=== PATIENT | female | born 1970 | race Caucasian/White ===

== ENCOUNTER 2017-06-09 12:39 | Inpatient (IN) | payer BC ==
[~2017-06-09] VITALS: Ht 172.7 cm; Wt 99.8 kg
[2017-06-09 12:44] VITALS: BP_SYST 164
[2017-06-09 13:10] LABS: BILIRUBIN,URINE NEGATIVE (NEGATIVE); CLARITY/URINE CLEAR (CLEAR); COLOR,URINE YELLOW (YELLOW); GLUCOSE,URINE NEGATIVE (NEGATIVE); KETONES,URINE NEGATIVE (NEGATIVE); LEUKOCYTE ESTERASE ,URINE NEGATIVE (NEGATIVE); NITRITE, URINE NEGATIVE (NEGATIVE); PROTEIN URINE NEGATIVE (NEGATIVE); UROBILINOGEN,URINE 0.2 (0.2-1.0)
[2017-06-09] MEDS ORDERED: NACL 0.9% 1,000 ML IV ONE ×2 (13:15→14:45)
[2017-06-09] MEDS ORDERED: MORPHINE 4 MG/ML INJ. SYRINGE IVP ONE (13:15)
[2017-06-09] MEDS ORDERED: ONDANSETRON HCL 4 MG/2 ML VIAL IVP ONE (13:15)
[2017-06-09 13:33] LABS: BLOOD, URINE TRACE (NEGATIVE)
[2017-06-09 13:48] LABS: BACTERIA,URINE FEW /HPF (None Seen); MUCUS,URINE 1+ /LPF (None Seen); RBC,URINE 0-3 /HPF (0-3); WBC,URINE 0-3 /HPF (0-3)
[2017-06-09 13:56] LABS: BASOPHILS # (AUTO) 0.1 K/uL (0.0-0.2); BASOPHILS % (AUTO) 0.4 % (0.0-2.0); EOSINOPHILS % (AUTO) 0.2 % (0.0-4.0); HEMATOCRIT 42.3 % (36-48); HEMOGLOBIN 14.1 g/dL (12.0-16.0); LYMPHOCYTES % (AUTO) 12.5 % (20.5-51.5); MEAN CORPUSCULAR HEMOGLOBIN 31 pg (27-31); MEAN CORPUSCULAR HGB CONC 33 % (32-36); MEAN CORPUSCULAR VOLUME 94 fL (79.0-98.0); MONOCYTES # (AUTO) 0.7 K/uL (0.0-1.0); MONOCYTES % (AUTO) 4.2 % (1.7-9.3); NEUTROPHILS # (AUTO) 13.3 K/uL (1.8-7.7); NEUTROPHILS % (AUTO) 82.7 % (40.0-70.0); PLATELET COUNT (AUTO) 361 K/uL (130-430); RED CELL DISTRIBUTION WIDTH 11.9 % (9.0-15.0); WHITE BLOOD COUNT (AUTO) 16.1 K/uL (4.8-10.8)
[2017-06-09 14:26] LABS: ALANINE AMINOTRANSFERASE 88 U/L (12-78); ALBUMIN 3.7 g/dL (3.4-4.8); AMYLASE 132 U/L (0-100); ANION GAP 11 (5-15); ASPARTATE AMINOTRANSFERASE 49 U/L (10-37); CALCIUM 8.9 mg/dL (8.4-11.0); CHLORIDE 100 mmol/L (98-107); CREATININE 0.74 mg/dL (0.55-1.30); GLUCOSE 128 mg/dL (70-99); LIPASE 1127 U/L (73-393); POTASSIUM 3.6 mmol/L (3.5-5.1); SODIUM SERUM 133 mmol/L (136-145); TOTAL BILIRUBIN 0.6 mg/dL (0.0-1.0)
[2017-06-09 14:28] LABS: GFR AFRICAN AMERICAN 109 mL/min (>90)
[2017-06-09 14:37] LABS: UREA NITROGEN, BLOOD 5 mg/dL (8-21)
[2017-06-09 16:00] VITALS: BP_SYST 136
[2017-06-09] MEDS ORDERED: THIAMINE HCL 100 MG in NS 50 ML IV ONE (16:15)
[2017-06-09 16:32] VITALS: BP_SYST 136
[2017-06-09] MEDS ORDERED: ONDANSETRON HCL 4 MG/2 ML VIAL IVP PRN (16:45)
[2017-06-09] MEDS ORDERED: MORPHINE 4 MG/ML INJ. SYRINGE IVP PRN (16:45)
[2017-06-09] MEDS ORDERED: FLU VACC QS 2017-18(36MOS+)/PF 0.5 ML/SYR SYRINGE I.M. PRN (17:00)
[2017-06-09] MEDS ORDERED: LORazepam 2 MG/ML VIAL IVP PRN (17:15)
[2017-06-09] MEDS: MORPHINE 2 MG/ML INJ. SYRINGE IVP PRN ×2 (17:18→20:49)
[2017-06-09] MEDS: NACL 0.9% 1,000 ML IV SCH (17:20)
[2017-06-09] MEDS ORDERED: PIPERACILLIN/TAZOBACTAM 3.375 GM/VIAL (ZOSYN) IV ONE (18:18)
[2017-06-09 19:05] VITALS: BP_SYST 157
[2017-06-09] MEDS: PIPERACILLIN/TAZO 3.375/DEX-IS 50 ML IV SCH (20:08)
[2017-06-09] MEDS: TEMAZEPAM 15 MG CAPSULE PO PRN (21:36)
[2017-06-10] VITALS (7 sets, daily range): BP systolic 120–132
[2017-06-10] MEDS: PIPERACILLIN/TAZO 3.375/DEX-IS 50 ML IV SCH ×4 (00:22→17:24)
[2017-06-10] MEDS: MORPHINE 2 MG/ML INJ. SYRINGE IVP PRN ×4 (05:31→20:43)
[2017-06-10 07:35] LABS: BASOPHILS % (AUTO) 0.1 % (0.0-2.0); EOSINOPHILS # (AUTO) 0.1 K/uL (0.0-0.4); EOSINOPHILS % (AUTO) 0.5 % (0.0-4.0); HEMATOCRIT 40.1 % (36-48); HEMOGLOBIN 13.6 g/dL (12.0-16.0); LYMPHOCYTES % (AUTO) 15.5 % (20.5-51.5); MEAN CORPUSCULAR HEMOGLOBIN 32 pg (27-31); MEAN CORPUSCULAR HGB CONC 34 % (32-36); MEAN CORPUSCULAR VOLUME 94 fL (79.0-98.0); MONOCYTES # (AUTO) 1.1 K/uL (0.0-1.0); NEUTROPHILS # (AUTO) 9.5 K/uL (1.8-7.7); NEUTROPHILS % (AUTO) 74.9 % (40.0-70.0); PLATELET COUNT (AUTO) 319 K/uL (130-430); RED BLOOD CELL COUNT(AUTO) 4.29 MIL/uL (4.2-6.2); RED CELL DISTRIBUTION WIDTH 12.4 % (9.0-15.0); WHITE BLOOD COUNT (AUTO) 12.7 K/uL (4.8-10.8)
[2017-06-10 07:54] LABS: ALBUMIN 3.2 g/dL (3.4-4.8); CREATININE 0.62 mg/dL (0.55-1.30); POTASSIUM 3.4 mmol/L (3.5-5.1); TOTAL BILIRUBIN 1.3 mg/dL (0.0-1.0)
[2017-06-10] MEDS: THIAMINE HCL 100 MG TABLET PO SCH (08:23)
[2017-06-10] MEDS: FOLIC ACID 1 MG TABLET PO SCH (08:23)
[2017-06-10] MEDS: NACL 0.9% 1,000 ML IV SCH ×3 (10:13→20:44)
[2017-06-10] MEDS ORDERED: POTASSIUM CHLORIDE 20 MEQ TAB.PRT.SR PO ONE (11:30)
[2017-06-11] VITALS: BP_SYST 127
[2017-06-11] MEDS: PIPERACILLIN/TAZO 3.375/DEX-IS 50 ML IV SCH ×5 (00:38→23:01)
[2017-06-11] MEDS: NACL 0.9% 1,000 ML IV SCH ×2 (00:40→09:13)
[2017-06-11 04:00] VITALS: BP_SYST 127
[2017-06-11 07:57] LABS: BASOPHILS % (AUTO) 0.2 % (0.0-2.0); EOSINOPHILS # (AUTO) 0.2 K/uL (0.0-0.4); EOSINOPHILS % (AUTO) 1.7 % (0.0-4.0); HEMATOCRIT 36.8 % (36-48); HEMOGLOBIN 12.8 g/dL (12.0-16.0); LYMPHOCYTES # (AUTO) 2.6 K/uL (1.0-5.5); LYMPHOCYTES % (AUTO) 24.8 % (20.5-51.5); MEAN CORPUSCULAR HEMOGLOBIN 33 pg (27-31); MEAN CORPUSCULAR HGB CONC 35 % (32-36); MEAN CORPUSCULAR VOLUME 95 fL (79.0-98.0); MONOCYTES # (AUTO) 0.8 K/uL (0.0-1.0); MONOCYTES % (AUTO) 7.9 % (1.7-9.3); NEUTROPHILS # (AUTO) 6.8 K/uL (1.8-7.7); NEUTROPHILS % (AUTO) 65.4 % (40.0-70.0); PLATELET COUNT (AUTO) 288 K/uL (130-430); RED CELL DISTRIBUTION WIDTH 12.1 % (9.0-15.0); WHITE BLOOD COUNT (AUTO) 10.4 K/uL (4.8-10.8)
[2017-06-11 08:00] VITALS: BP_SYST 123
[2017-06-11 08:00] LABS: CREATININE 0.5 mg/dL (0.55-1.30); POTASSIUM 3.4 mmol/L (3.5-5.1); TOTAL BILIRUBIN 1.1 mg/dL (0.0-1.0)
[2017-06-11] MEDS: FOLIC ACID 1 MG TABLET PO SCH (09:13)
[2017-06-11] MEDS: THIAMINE HCL 100 MG TABLET PO SCH (09:13)
[2017-06-11 12:37] VITALS: BP_SYST 103
[2017-06-11 16:00] VITALS: BP_SYST 143
[2017-06-11] MEDS ORDERED: POTASSIUM CHLORIDE 20 MEQ TAB.PRT.SR PO ONE (17:00)
[2017-06-11 20:00] VITALS: BP_SYST 109
[2017-06-11] MEDS: TEMAZEPAM 15 MG CAPSULE PO PRN (22:59)
[2017-06-12 00:10] VITALS: BP_SYST 101
[2017-06-12 05:37] VITALS: BP_SYST 114
[2017-06-12] MEDS: PIPERACILLIN/TAZO 3.375/DEX-IS 50 ML IV SCH ×2 (05:37→12:16)
[2017-06-12 07:35] LABS: CALCIUM 8.4 mg/dL (8.4-11.0); CREATININE 0.56 mg/dL (0.55-1.30); POTASSIUM 3.3 mmol/L (3.5-5.1)
[2017-06-12 07:56] VITALS: BP_SYST 100
[2017-06-12 08:15] VITALS: BP_SYST 100
[2017-06-12] MEDS: THIAMINE HCL 100 MG TABLET PO SCH (08:51)
[2017-06-12] MEDS: FOLIC ACID 1 MG TABLET PO SCH (08:51)
[2017-06-12] MEDS ORDERED: POTASSIUM CHLORIDE 20 MEQ TAB.PRT.SR PO ONE (10:45)
[2017-06-12 10:53] VITALS: BP_SYST 118
[2017-06-12] MEDS ORDERED: POTA-88 PO (12:37)
[2017-06-12] MEDS ORDERED: FAMO10TA41 PO (12:38)
[2017-06-12 12:41] VITALS: BP_SYST 118
[2017-06-12 17:07] LABS: ANTI NUCLEAR AB WITH REFLEX Negative (Negative)
== END 2017-06-12 13:24 | disposition home or self-care (01) | DRG 439 ==
LOC: SED 12:39 → STU 15:35 → SMU 06-10 11:38
PROVIDERS: ADMIT Internal Medicine; ATTEND Internal Medicine
DX: K85.20 Alcohol induced acute pancreatitis without necrosis or infection (principal); R65.10 Systemic inflammatory response syndrome (SIRS) of non-infectious origin without acute organ dysfunction; E66.9 Obesity, unspecified; E87.6 Hypokalemia; Z87.891 Personal history of nicotine dependence; M06.9 Rheumatoid arthritis, unspecified; I10 Essential (primary) hypertension; F41.9 Anxiety disorder, unspecified; M21.619 Bunion of unspecified foot; Z90.710 Acquired absence of both cervix and uterus; Z68.33 Body mass index [BMI] 33.0-33.9, adult
CPT/HCPCS: 36415; 76700-TC; 80048; 80053; 80061; 81000-TC; 82150-TC; 82787; 83605; 83690-TC; 83735-TC; 84484; 85025; 86038; 87040-TC; 93005; 96361; 96374; 96375; 99285; J2270; J2405; J2543; J3411; J7030

== ENCOUNTER 2019-09-10 10:14 | Emergency (ER) | payer BC ==
[~2019-09-10] VITALS: Ht 172.7 cm; Wt 108.9 kg
[~2019-09-10 10:14] MED LIST: FAMO10TA41 PO; POTA-88 PO
[2019-09-10 10:15] VITALS: BP_SYST 152
--- NOTE | 2019-09-10 10:15 | NUR ---
BROUGHT BACK TO BED #7 AND TRIAGED. REPORT GIVEN TO KUSH
[2019-09-10] MEDS ORDERED: ESCI20TA PO (10:38)
[2019-09-10] MEDS ORDERED: ATEN50TA PO (10:38)
--- NOTE | 2019-09-10 10:41 | NUR ---
PATIENT PRESENTS TO THE ER WITH ONE WEEK HX OF LOWER BACK PAIN WITH LEFT LOWER QUADRANT PAIN AND NAUSEA; NO TRAUMA, NO OTHER REMARKABLE S/S; PATIENT TO ER #7 AT 1027
--- NOTE | 2019-09-10 11:15 | NUR ---
REASSESSMENT; PATIENT STATES MARGINAL IMPROVEMENT; ERMD EVALUATION AT 1100; ORDERS EXECUTED
[2019-09-10 11:49] LABS: BASOPHILS # (AUTO) 0.1 K/uL (0.0-0.2); BASOPHILS % (AUTO) 0.6 % (0.0-2.0); EOSINOPHILS # (AUTO) 0.2 K/uL (0.0-0.4); EOSINOPHILS % (AUTO) 1.9 % (0.0-4.0); HEMATOCRIT 40.3 % (36-48); HEMOGLOBIN 13.4 g/dL (12.0-16.0); LYMPHOCYTES # (AUTO) 3.5 K/uL (1.0-5.5); MEAN CORPUSCULAR HEMOGLOBIN 30 pg (27-31); MEAN CORPUSCULAR HGB CONC 33 % (32-36); MEAN CORPUSCULAR VOLUME 91 fL (79.0-98.0); MONOCYTES # (AUTO) 0.7 K/uL (0.0-1.0); MONOCYTES % (AUTO) 7.5 % (1.7-9.3); NEUTROPHILS # (AUTO) 5.2 K/uL (1.8-7.7); PLATELET COUNT (AUTO) 394 K/uL (130-430); RED BLOOD CELL COUNT(AUTO) 4.41 MIL/uL (4.2-6.2); WHITE BLOOD COUNT (AUTO) 9.6 K/uL (4.8-10.8)
[2019-09-10 11:53] LABS: CALCIUM 9.1 mg/dL (8.4-11.0); CREATININE 0.68 mg/dL (0.55-1.30)
[2019-09-10 11:58] LABS: ALBUMIN 4.1 g/dL (3.4-4.8); TOTAL BILIRUBIN 0.4 mg/dL (0.0-1.0)
--- NOTE | 2019-09-10 13:00 | NUR ---
REASSESSMENT; PATIENT STATES HER PAIN HAS RESOLVED; DISPOSITION PENDING
[2019-09-10 13:28] VITALS: BP_SYST 118
--- NOTE | 2019-09-10 13:30 | NUR ---
Patient given written and verbal discharge instructions and verbalizes understanding. ER MD discussed with patient the results and treatment provided. Patient in stable condition. ID arm band removed. Rx of Tramadol given. Patient educated on pain management and to follow up with PMD. Pain Scale 2/10 tolerable for patient. Opportunity for questions provided and answered. Medication side effect fact sheet provided.
== END 2019-09-10 13:28 | disposition home or self-care (01) ==
LOC: SED 10:14
DX: I88.0 Nonspecific mesenteric lymphadenitis (principal); Z88.1 Allergy status to other antibiotic agents
CPT/HCPCS: 36415; 80053; 81002; 83690-TC; 85025; 99284

== ENCOUNTER 2022-06-10 19:06 | Emergency (ER) | payer BC ==
[~2022-06-10] VITALS: Ht 172.7 cm; Wt 96.6 kg
[~2022-06-10 19:06] MED LIST changes: +ATEN50TA PO; +ESCI20TA PO; -FAMO10TA41 PO; -POTA-88 PO
--- NOTE | 2022-06-10 19:14 | NUR ---
ER in triage examining patient.
[2022-06-10 19:20] VITALS: BP_SYST 154
--- NOTE | 2022-06-10 19:20 | NUR ---
Patient came in to ER with complains of cough and congestion since . States that she tested positive for COVID earlier today. She denies any phlegm production, difficulty breathing. Patient with no history of asthma. Patient with history of rheumatoid arthritis taking her steroids.
--- NOTE | 2022-06-10 19:30 | NUR ---
CC COVID LIKE SYMPTOMS, SORE THROAT, COUGH, SOB, CHEST CONGESTION.
[2022-06-10] MEDS ORDERED: ALBMDI INH (19:56)
[2022-06-10] MEDS ORDERED: NIRM1TAB5 PO (19:56)
--- NOTE | 2022-06-10 20:12 | NUR ---
DPatient given written and verbal discharge instructions and verbalizes understanding. ER MD discussed with patient the results and treatment provided. Patient in stable condition. ID arm band removed. Rx of PAXLOVID AND ALBUTEROL given. Patient educated on pain management and to follow up with PMD. Opportunity for questions provided and answered. Medication side effect fact sheet provided.
== END 2022-06-10 20:14 | disposition home or self-care (01) ==
LOC: SED 19:06
DX: U07.1 COVID-19 (principal); J40 Bronchitis, not specified as acute or chronic; R05.9 Cough, unspecified; R09.81 Nasal congestion; Z88.1 Allergy status to other antibiotic agents; Z79.899 Other long term (current) drug therapy
CPT/HCPCS: 71045; 99283